=== PATIENT | male | born 1960 | race Caucasian/White ===

== ENCOUNTER 2019-11-14 12:04 | Emergency (ER) | payer OTHER ==
[2019-11-14] MEDS ORDERED: Albuterol/Ipratropium 3.0-0.5 MG/3 ML Neb Soln ONE (12:07)
[2019-11-14] MEDS ORDERED: Furosemide 40 MG/4 ML VIAL IVPUSH ONE (12:12)
[2019-11-14] MEDS ORDERED: Sodium Chloride 0.9% 10 ML Syringe FLUSH PRN (12:12)
[2019-11-14] MEDS ORDERED: Sodium Chloride 0.9% 2.5 ML Syringe FLUSH PRN (12:12)
[2019-11-14] MEDS ORDERED: Aspirin 81 MG Tab.Chew PO ONE (12:16)
[2019-11-14] MEDS ORDERED: Ondansetron 4 MG/2 ML SDV IVPUSH ONE (12:16)
[2019-11-14] MEDS ORDERED: Morphine 2 MG/ML Syringe IVPUSH ONE (12:16)
[2019-11-14] MEDS ORDERED: Nitroglycerin 2% Oint 1 GM UD Packet TOP ONE (12:16)
[2019-11-14 12:58] LABS: CARBON DIOXIDE,CO2 29.9 mmol/L (21.0-32.0); POTASSIUM,K 4.2 mmol/L (3.5-5.1)
--- NOTE | 2019-11-14 13:39 | CR ---
Chest: AP view of the chest was obtained. Comparison: No prior chest x-ray. Heart is enlarged but also is accentuated from AP technique. Tortuous thoracic aorta is seen. Lungs are clear no acute parenchymal change. Bony structures are grossly intact. Impression: 1. Heart is felt to be slightly enlarged. 2. Nothing acute is otherwise seen. Diagnostic code #2 This report was dictated in [place] Standard Time
--- NOTE | 2019-11-14 13:55 | EDM.PDOC ---
ED HPI GENERAL MEDICAL PROBLEM - General Chief Complaint: Respiratory Problem Stated Complaint: SOB Time Seen by Provider: 11/14/19 12:07 - History of Present Illness INITIAL COMMENTS - FREE TEXT/NARRATIVE: HISTORY AND PHYSICAL: History of present illness: Patient is a 59-year-old white male with history of coronary artery disease including stent placement approximately 1 year prior who presents with concern of progressive shortness of breath this has been exertional he also acknowledges medical noncompliance with his diuretic he states he has had some chest discomfort that he describes as a tightness also has had some in his neck he states this is been present approximately x1 week he is somewhat vague with regard to the intermittent nature of it on arrival here he did complain of the slightly this was relieved status post Lasix morphine and Nitropaste he did get full dose aspirin and remains without discomfort at this time he denies any tightness in his chest or neck and his shortness of breath is improved dramatically. Review of systems: As per history of present illness and below otherwise all systems reviewed and negative. Past medical history: As per history of present illness and as reviewed below otherwise noncontributory. Surgical history: As per history of present illness and as reviewed below otherwise noncontributory. Social history: No reported history of drug or alcohol abuse. Family history: As per history of present illness and as reviewed below otherwise noncontributory. Physical exam: HEENT: Atraumatic, normocephalic, pupils reactive, negative for conjunctival pallor or scleral icterus, mucous membranes moist, throat clear, neck supple, nontender, trachea midline. Lungs: Slightly diminished basilar crackles noted, breath sounds equal bilaterally, chest nontender. Heart: S1S2, regular, negative for clicks, rubs, or JVD. Abdomen: Soft, nondistended, nontender. Negative for masses or hepatosplenomegaly. Negative for costovertebral tenderness. Pelvis: Stable nontender. Genitourinary: Deferred. Rectal: Deferred. Extremities: Atraumatic, negative for cords or calf pain. Neurovascular unremarkable. Neuro: Awake, alert, oriented. Cranial nerves II through XII unremarkable. Cerebellum unremarkable. Motor and sensory unremarkable throughout. Exam nonfocal. Diagnostics: CBC CMP troponin PT/INR BNP chest x-ray EKG Therapeutics: IV O2 monitor aspirin 324 mg morphine sulfate 2 mg IV Zofran 4 mg IV Nitropaste 1 inch to chest wall Impression: #1 acute coronary syndrome Definitive disposition and diagnosis as appropriate pending reevaluation and review of above. Chest Heaviness Pain Score (Numeric/FACES): 7 - Related Data Allergies Allergy/AdvReac Type Severity Reaction Status Date / Time No Known Allergies Allergy Verified 11/14/19 12:16 Home Meds: Home Meds Clopidogrel [Plavix] 75 mg PO DAILY 11/14/19 [History] Furosemide [Lasix] 40 mg PO 11/14/19 [History] Past Medical History Cardiovascular History: Reports: Hypertension, Stents Social & Family History - Family History Family Medical History: Unobtainable - Tobacco Use Smoking Status *Q: Never Smoker - Recreational Drug Use Recreational Drug Use: No ED ROS GENERAL - Review of Systems Review Of Systems: Comprehensive ROS is negative, except as noted in HPI. ED EXAM, GENERAL - Physical Exam Exam: See Below (See dictation) Course - Vital Signs Text/Narrative:: Dr. Meadows cardiology did see patient in emergency department EKG was reviewed patient will be transferred to there are no beds available at [facility] where patient has had his cardiac cath and stent placement patient understands and agrees Last Recorded V/S: Last Vital Signs Temp 36.8 C 11/14/19 12:16 Pulse 118 H 11/14/19 13:39 Resp 20 11/14/19 13:39 BP 122/89 11/14/19 13:39 Pulse Ox 97 11/14/19 13:39 - Orders/Labs/Meds Orders: Active Orders 24 hr Category Date Time Status Cardiac Monitoring [RC] . DIRECTED Care 11/14/19 12:11 Active EKG 12 Lead [EKG Documentation Completion] [RC] STAT Care 11/14/19 13:08 Active EKG Documentation Completion [RC] STAT Care 11/14/19 12:11 Active Oxygen Therapy, ED [RC] ASDIRECTED Care 11/14/19 12:11 Active Pulse Oximetry [RC] ASDIRECTED Care 11/14/19 12:11 Active Sodium Chloride 0.9% [Saline Flush] Med 11/14/19 12:12 Active 10 ml FLUSH ASDIRECTED PRN Sodium Chloride 0.9% [Saline Flush] Med 11/14/19 12:12 Active 2.5 ml FLUSH ASDIRECTED PRN Saline Lock Insert [OM.PC] Stat Oth 11/14/19 12:11 Ordered Medication Orders Sodium Chloride (Saline Flush) 10 ml FLUSH ASDIRECTED PRN PRN Reason: Keep Vein Open Last Admin: 11/14/19 12:25 Dose: 10 ml Sodium Chloride (Saline Flush) 2.5 ml FLUSH ASDIRECTED PRN PRN Reason: Keep Vein Open Last Admin: 11/14/19 12:24 Dose: 2.5 ml Labs: Laboratory Tests 11/14/19 11/14/19 11/14/19 Range/Units 12:15 12:15 12:15 WBC 11.23 H (4.0-11.0) K/uL RBC 6.00 H (4.50-5.90) M/uL Hgb 18.7 H (13.0-17.0) g/dL Hct 55.8 H (38.0-50.0) % MCV 93.0 (80.0-98.0) fL MCH 31.2 (27.0-32.0) pg MCHC 33.5 (31.0-37.0) g/dL RDW Std Deviation 56.6 (28.0-62.0) fl RDW Coeff of Edinson 17 H (11.0-15.0) % Plt Count 188 (150-400) K/uL MPV 11.30 (7.40-12.00) fL Neut % (Auto) 62.7 (48.0-80.0) % Lymph % (Auto) 24.4 (16.0-40.0) % [place] % (Auto) 11.6 (0.0-15.0) % Eos % (Auto) 0.9 (0.0-7.0) % Baso % (Auto) 0.4 (0.0-1.5) % Neut # (Auto) 7.0 H (1.4-5.7) K/uL Lymph # (Auto) 2.7 H (0.6-2.4) K/uL Putnam # (Auto) 1.3 H (0.0-0.8) K/uL Eos # (Auto) 0.1 (0.0-0.7) K/uL Baso # (Auto) 0.1 (0.0-0.1) K/uL Nucleated RBC % 0.0 /100WBC Nucleated RBCs # 0 K/uL INR 1.20 Sodium 143 (136-148) mmol/L Potassium 4.2 (3.5-5.1) mmol/L Chloride 104 (98-107) mmol/L Carbon Dioxide 29.9 (21.0-32.0) mmol/L BUN 32 H (7.0-18.0) mg/dL Creatinine 2.3 H (0.8-1.3) mg/dL Est Cr Clr Drug Dosing 31.98 mL/min Estimated GFR (MDRD) 29.5 ml/min Glucose 89 (74-106) mg/dL Calcium 9.2 (8.5-10.1) mg/dL Total Bilirubin 2.3 H (0.2-1.0) mg/dL AST 58 H (15-37) IU/L ALT 76 H (14-63) IU/L Alkaline Phosphatase 39 L (46-116) U/L Troponin I 0.447 H* (0.000-0.056) ng/mL B-Natriuretic Peptide (<100) PG/ML Total Protein 7.6 (6.4-8.2) g/dL Albumin 3.6 (3.4-5.0) g/dL Globulin 4.0 (2.6-4.0) g/dL Albumin/Globulin Ratio 0.9 (0.9-1.6) 11/14/19 Range/Units 12:15 WBC (4.0-11.0) K/uL RBC (4.50-5.90) M/uL Hgb (13.0-17.0) g/dL Hct (38.0-50.0) % MCV (80.0-98.0) fL MCH (27.0-32.0) pg MCHC (31.0-37.0) g/dL RDW Std Deviation (28.0-62.0) fl RDW Coeff of Edinson (11.0-15.0) % Plt Count (150-400) K/uL MPV (7.40-12.00) fL Neut % (Auto) (48.0-80.0) % Lymph % (Auto) (16.0-40.0) % [place] % (Auto) (0.0-15.0) % Eos % (Auto) (0.0-7.0) % Baso % (Auto) (0.0-1.5) % Neut # (Auto) (1.4-5.7) K/uL Lymph # (Auto) (0.6-2.4) K/uL [place] # (Auto) (0.0-0.8) K/uL Eos # (Auto) (0.0-0.7) K/uL Baso # (Auto) (0.0-0.1) K/uL Nucleated RBC % /100WBC Nucleated RBCs # K/uL INR Sodium (136-148) mmol/L Potassium (3.5-5.1) mmol/L Chloride (98-107) mmol/L Carbon Dioxide (21.0-32.0) mmol/L BUN (7.0-18.0) mg/dL Creatinine (0.8-1.3) mg/dL Est Cr Clr Drug Dosing mL/min Estimated GFR (MDRD) ml/min Glucose (74-106) mg/dL Calcium (8.5-10.1) mg/dL Total Bilirubin (0.2-1.0) mg/dL AST (15-37) IU/L ALT (14-63) IU/L Alkaline Phosphatase (46-116) U/L Troponin I (0.000-0.056) ng/mL B-Natriuretic Peptide 590 H (<100) PG/ML Total Protein (6.4-8.2) g/dL Albumin (3.4-5.0) g/dL Globulin (2.6-4.0) g/dL Albumin/Globulin Ratio (0.9-1.6) Meds: Medications Generic Name Dose Route Start Last Admin Trade Name Freq PRN Reason Stop Dose Admin Sodium Chloride 10 ml 11/14/19 12:12 11/14/19 12:25 Saline Flush FLUSH 10 ml ASDIRECTED PRN Administration Keep Vein Open Sodium Chloride 2.5 ml 11/14/19 12:12 11/14/19 12:24 Saline Flush FLUSH 2.5 ml ASDIRECTED PRN Administration Keep Vein Open Discontinued Medications Generic Name Dose Route Start Last Admin Trade Name Freq PRN Reason Stop Dose Admin Albuterol/Ipratropium Confirm 11/14/19 12:07 11/14/19 12:25 Duoneb 3.0-0.5 Mg/3 Ml Administered 11/14/19 12:08 Not Given Dose 3 ml .ROUTE .STK-MED ONE Aspirin 324 mg 11/14/19 12:16 11/14/19 12:24 Aspirin PO 11/14/19 12:17 324 mg ONETIME ONE Administration Furosemide 40 mg 11/14/19 12:12 11/14/19 12:25 Lasix IVPUSH 11/14/19 12:13 40 mg NOW ONE Administration Morphine Sulfate 2 mg 11/14/19 12:16 11/14/19 12:24 Morphine IVPUSH 11/14/19 12:17 2 mg ONETIME ONE Administration Nitroglycerin 1 gm 11/14/19 12:16 11/14/19 12:24 Nitro-Bid 2% TOP 11/14/19 12:17 1 gm ONETIME ONE Administration Ondansetron HCl 4 mg 11/14/19 12:16 11/14/19 12:24 Zofran IVPUSH 11/14/19 12:17 4 mg ONETIME ONE Administration Departure - Departure Time of Disposition: 13:55 Disposition: DC/Tfer to Acute Hospital 02 Condition: Good Clinical Impression: Coronary syndrome, acute, Congestive heart failure - Discharge Information Referrals: PCP,None [Primary Care Provider] - Sepsis Event Note - Evaluation Sepsis Screening Result: No Definite Risk - Focused Exam Vital Signs: Vital Signs Temp Pulse Resp BP Pulse Ox 11/14/19 13:39 118 H 20 122/89 97 11/14/19 13:14 114 H 18 130/69 96 11/14/19 12:45 122 H 18 136/75 94 L 11/14/19 12:16 36.8 C 130 H 26 H 130/79 95 Date Exam was Performed: 11/14/19 Time Exam was Performed: 13:50 - My Orders Last 24 Hours: My Active Orders 11/14/19 12:11 Cardiac Monitoring [RC] . DIRECTED EKG Documentation Completion [RC] STAT Oxygen Therapy, ED [RC] ASDIRECTED Pulse Oximetry [RC] ASDIRECTED Saline Lock Insert [OM.PC] Stat 11/14/19 12:12 Sodium Chloride 0.9% [Saline Flush] 10 ml FLUSH ASDIRECTED PRN Sodium Chloride 0.9% [Saline Flush] 2.5 ml FLUSH ASDIRECTED PRN 11/14/19 13:08 EKG 12 Lead [EKG Documentation Completion] [RC] STAT - Assessment/Plan Last 24 Hours: My Active Orders 11/14/19 12:11 Cardiac Monitoring [RC] . DIRECTED EKG Documentation Completion [RC] STAT Oxygen Therapy, ED [RC] ASDIRECTED Pulse Oximetry [RC] ASDIRECTED Saline Lock Insert [OM.PC] Stat 11/14/19 12:12 Sodium Chloride 0.9% [Saline Flush] 10 ml FLUSH ASDIRECTED PRN Sodium Chloride 0.9% [Saline Flush] 2.5 ml FLUSH ASDIRECTED PRN 11/14/19 13:08 EKG 12 Lead [EKG Documentation Completion] [RC] STAT
== END 2019-11-14 14:35 ==
LOC: MW.ED 12:04
DX: I24.9 Acute ischemic heart disease, unspecified (principal); I11.0 Hypertensive heart disease with heart failure; I50.9 Heart failure, unspecified; Z95.5 Presence of coronary angioplasty implant and graft
CPT/HCPCS: 71045; 80053; 83880; 84484; 85025; 85610; 87804; 93005; 96374; 96375; 99285; A9270; J1940; J2270; J2405; J7620-GY

== ENCOUNTER 2022-08-30 15:40 | Inpatient (IN) | payer MEDICARE, OTHER ==
[2022-08-30] MEDS ORDERED: Sodium Chloride 0.9% 10 ML Syringe FLUSH PRN (16:16)
[2022-08-30] MEDS ORDERED: Sodium Chloride 0.9% 2.5 ML Syringe FLUSH PRN (16:16)
[2022-08-30 16:55] LABS: CARBON DIOXIDE,CO2 19.6 mmol/L (21.0-32.0); POTASSIUM,K 4.6 mmol/L (3.5-5.1)
[2022-08-30] MEDS ORDERED: Iopamidol 755 MG/ML 500 ML Multipack Bottle IVPUSH STA (17:50)
[2022-08-30] MEDS ORDERED: Furosemide 40 MG/4 ML VIAL ONE (20:46)
[2022-08-30] MEDS ORDERED: Furosemide 40 MG/4 ML VIAL IVPUSH ONE (20:49)
[2022-08-30] MEDS ORDERED: Acetaminophen 325 MG Tab PO PRN (22:57)
[2022-08-31 07:02] LABS: CARBON DIOXIDE,CO2 25.7 mmol/L (21.0-32.0); POTASSIUM,K 4.4 mmol/L (3.5-5.1)
[2022-08-31] MEDS ORDERED: Sodium Chloride 0.9% 10 ML Syringe FLUSH PRN (08:03)
[2022-08-31] MEDS ORDERED: Docusate Sodium 100 MG Cap PO PRN (08:03)
[2022-08-31] MEDS ORDERED: Albuterol/Ipratropium 3.0-0.5 MG/3 ML Neb Soln NEB PRN (08:03)
[2022-08-31] MEDS ORDERED: Ondansetron 4 MG/2 ML SDV IVPUSH PRN (08:03)
[2022-08-31] MEDS ORDERED: Sodium Chloride 0.9% 2.5 ML Syringe FLUSH PRN (08:03)
[2022-08-31 08:49] LABS: HEMOGLOBIN A1C 7.6 %
[2022-08-31] MEDS: Furosemide 40 MG/4 ML VIAL IVPUSH SCH ×2 (09:34→14:08)
[2022-08-31] MEDS ORDERED: 50% Dextrose in Water 50 ML Syringe IVPUSH PRN (10:20)
[2022-08-31] MEDS ORDERED: Glucagon,Human Recombinant 1 MG Vial IM PRN (10:20)
[2022-08-31] MEDS: Aspirin 81 MG Tab.Chew PO SCH (10:36)
[2022-08-31] MEDS: Clopidogrel 75 MG Tab PO SCH (10:36)
[2022-08-31] MEDS: Empagliflozin 10 MG Tab PO SCH (11:05)
[2022-08-31] MEDS: Insulin Aspart 100 Units/ML 3 ML Pen SUBCUT SCH ×2 (11:51→16:50)
[2022-08-31] MEDS: Heparin Sodium 5,000 Units/ML Vial SUBCUT SCH ×2 (12:29→23:48)
[2022-08-31] MEDS: atorvaSTATin 40 MG Tab PO SCH (20:49)
[2022-09-01 07:09] LABS: CARBON DIOXIDE,CO2 26.3 mmol/L (21.0-32.0); POTASSIUM,K 3.9 mmol/L (3.5-5.1)
[2022-09-01] MEDS: Insulin Aspart 100 Units/ML 3 ML Pen SUBCUT SCH ×3 (08:33→17:00)
[2022-09-01] MEDS: Furosemide 40 MG/4 ML VIAL IVPUSH SCH ×2 (08:35→13:12)
[2022-09-01] MEDS: Empagliflozin 10 MG Tab PO SCH (08:35)
[2022-09-01] MEDS: Clopidogrel 75 MG Tab PO SCH (08:35)
[2022-09-01] MEDS: Aspirin 81 MG Tab.Chew PO SCH (08:35)
[2022-09-01] MEDS: Heparin Sodium 5,000 Units/ML Vial SUBCUT SCH ×2 (11:54→23:31)
[2022-09-01] MEDS: atorvaSTATin 40 MG Tab PO SCH (21:00)
[2022-09-02] MEDS: Insulin Aspart 100 Units/ML 3 ML Pen SUBCUT SCH ×3 (06:37→16:56)
[2022-09-02 07:00] LABS: CARBON DIOXIDE,CO2 27.2 mmol/L (21.0-32.0)
[2022-09-02] MEDS: Empagliflozin 10 MG Tab PO SCH (08:07)
[2022-09-02] MEDS: Clopidogrel 75 MG Tab PO SCH (08:07)
[2022-09-02] MEDS: Aspirin 81 MG Tab.Chew PO SCH (08:07)
[2022-09-02] MEDS: Carvedilol 3.125 MG Tab PO SCH ×2 (11:39→20:09)
[2022-09-02] MEDS: Lisinopril 5 MG Tab PO SCH (11:39)
[2022-09-02] MEDS: Furosemide 40 MG/4 ML VIAL IVPUSH SCH (11:50)
[2022-09-02] MEDS ORDERED: Furosemide 40 MG Tab PO SCH (12:00)
[2022-09-02] MEDS ORDERED: Furosemide 40 MG/4 ML VIAL IVPUSH ONE (12:15)
[2022-09-02] MEDS ORDERED: Warfarin Sliding Scale PO SCH (14:00)
[2022-09-02] MEDS ORDERED: Warfarin 5 MG Tab PO ONE (14:00)
[2022-09-02] MEDS: Furosemide 40 MG Tab PO SCH (16:48)
[2022-09-02] MEDS: atorvaSTATin 40 MG Tab PO SCH (20:09)
[2022-09-03 07:50] LABS: CARBON DIOXIDE,CO2 26.6 mmol/L (21.0-32.0); POTASSIUM,K 4.4 mmol/L (3.5-5.1)
[2022-09-03] MEDS: Insulin Aspart 100 Units/ML 3 ML Pen SUBCUT SCH ×2 (07:55→12:13)
[2022-09-03] MEDS: Furosemide 40 MG Tab PO SCH (08:05)
[2022-09-03] MEDS: Aspirin 81 MG Tab.Chew PO SCH (09:53)
[2022-09-03] MEDS: Empagliflozin 10 MG Tab PO SCH (09:54)
[2022-09-03] MEDS: Carvedilol 3.125 MG Tab PO SCH (09:55)
[2022-09-03] MEDS: Lisinopril 5 MG Tab PO SCH (09:56)
[2022-09-03] MEDS ORDERED: Warfarin 5 MG Tab PO ONE (14:00)
== END 2022-09-03 13:00 | disposition home or self-care (01) | DRG 291 ==
LOC: MW.ED 15:40 → MW.MS 20:45 → OBSVTOIN 08-31 13:03
PROVIDERS: ADMIT Internal Medicine; ATTEND Internal Medicine
DX: R06.00 Dyspnea, unspecified (principal); R09.02 Hypoxemia; I10 Essential (primary) hypertension; I13.0 Hypertensive heart and chronic kidney disease with heart failure and stage 1 through stage 4 chronic kidney disease, or unspecified chronic kidney disease; I50.9 Heart failure, unspecified; I50.21 Acute systolic (congestive) heart failure; I25.5 Ischemic cardiomyopathy; E66.9 Obesity, unspecified; F14.91 Cocaine use, unspecified, in remission; N18.31 Chronic kidney disease, stage 3a; Z66 Do not resuscitate; Z20.822 Contact with and (suspected) exposure to COVID-19; I25.10 Atherosclerotic heart disease of native coronary artery without angina pectoris; E11.22 Type 2 diabetes mellitus with diabetic chronic kidney disease; I48.91 Unspecified atrial fibrillation; Z68.32 Body mass index [BMI] 32.0-32.9, adult; I25.2 Old myocardial infarction; Z95.5 Presence of coronary angioplasty implant and graft
CPT/HCPCS: 36415 ×2; 71045; 71275; 80053 ×2; 80061; 80305; 81003; 82947; 83036; 83735; 83880; 84443; 84484 ×3; 85025 ×2; 85379; 85610; 93005; 93306; 96374; 99285; A9270 ×3; J1644; J1815; J1940 ×2; J3490; Q9967; U0002; 80048; 96376; G0378

== ENCOUNTER 2022-09-07 18:01 | Emergency (ER) | payer MEDICARE ==
[2022-09-07] MEDS ORDERED: Sodium Chloride 0.9% 2.5 ML Syringe FLUSH PRN (19:03)
[2022-09-07] MEDS ORDERED: Sodium Chloride 0.9% 10 ML Syringe FLUSH PRN (19:03)
== END 2022-09-07 21:45 | disposition home or self-care (01) ==
LOC: MW.ED 18:01
DX: R55 Syncope and collapse (principal); E11.22 Type 2 diabetes mellitus with diabetic chronic kidney disease; I13.0 Hypertensive heart and chronic kidney disease with heart failure and stage 1 through stage 4 chronic kidney disease, or unspecified chronic kidney disease; N18.9 Chronic kidney disease, unspecified; I50.9 Heart failure, unspecified; I25.10 Atherosclerotic heart disease of native coronary artery without angina pectoris; E66.9 Obesity, unspecified; Z68.31 Body mass index [BMI] 31.0-31.9, adult; Z95.5 Presence of coronary angioplasty implant and graft; Z79.01 Long term (current) use of anticoagulants; Z79.899 Other long term (current) drug therapy; Z79.82 Long term (current) use of aspirin; Z79.84 Long term (current) use of oral hypoglycemic drugs
CPT/HCPCS: 36415; 70450; 70450-26; 71045; 71045-26; 80053; 80305-QW; 80307; 81003; 83735; 84146; 84484; 85025; 93005; 99284

== ENCOUNTER 2022-10-19 02:22 | Emergency (ER) | payer MEDICARE ==
[2022-10-19] MEDS ORDERED: Acetaminophen 325 MG Tab PO ONE (02:59)
[2022-10-19 03:42] LABS: CORONAVIRUS COVID-19 NAA NEGATIVE (NEGATIVE); INFLUENZA A NAA POSITIVE (NEGATIVE); INFLUENZA B NAA NEGATIVE (NEGATIVE)
[2022-10-19] MEDS ORDERED: Oseltamivir 75 MG Cap PO ONE (03:47)
[2022-10-19] MEDS ORDERED: Ondansetron 4 MG Tab.DIS PO ONE (03:47)
== END 2022-10-19 04:13 | disposition home or self-care (01) ==
LOC: MW.ED 02:22
DX: J10.1 Influenza due to other identified influenza virus with other respiratory manifestations (principal); I11.0 Hypertensive heart disease with heart failure; I50.9 Heart failure, unspecified; I25.2 Old myocardial infarction; E11.9 Type 2 diabetes mellitus without complications; E66.9 Obesity, unspecified; Z68.31 Body mass index [BMI] 31.0-31.9, adult; Z79.82 Long term (current) use of aspirin; Z79.899 Other long term (current) drug therapy; Z79.01 Long term (current) use of anticoagulants; Z79.84 Long term (current) use of oral hypoglycemic drugs; Z20.822 Contact with and (suspected) exposure to COVID-19
CPT/HCPCS: 0240U; 71046; 99283; A9270

== ENCOUNTER 2024-09-29 13:27 | Inpatient (IN) | payer MEDICARE ==
[2024-09-29] MEDS ORDERED: Sodium Chloride 0.9% 10 ML Syringe FLUSH PRN (13:39)
[2024-09-29] MEDS ORDERED: Sodium Chloride 0.9% 2.5 ML Syringe FLUSH PRN (13:39)
[2024-09-29 13:59] LABS: BASOPHILS ABSOLUTE AUTO 0.05 K/uL (0.00-0.20); BASOPHILS PERCENT AUTO 0.4 % (0.0-1.0); EOSINOPHILS ABSOLUTE AUTO 0.39 K/uL (0.00-0.45); EOSINOPHILS PERCENT AUTO 2.8 % (0.0-6.0); HEMATOCRIT 43.8 % (42.0-52.0); HEMOGLOBIN 15.5 g/dL (14.0-18.0); IMMATURE GRAN ABSOLUTE AUTO 0.08 K/uL (0.00-0.05); IMMATURE GRAN PERCENT AUTO 0.6 % (0.0-0.4); LYMPHOCYTES ABSOLUTE AUTO 1.93 K/uL (1.00-4.80); LYMPHOCYTES PERCENT AUTO 13.7 % (24.0-44.0); MEAN CORPUSCULAR HGB CONC 35.4 g/dL (32.0-36.0); MEAN CORPUSCULAR VOLUME 93.4 fL (83.0-99.0); MEAN PLATELET VOLUME 9.7 fL (9.4-12.4); MONOCYTES ABSOLUTE AUTO 1.15 K/uL (0.00-0.80); MONOCYTES PERCENT AUTO 8.2 % (0.0-8.0); NEUTROPHILS PERCENT AUTO 74.3 % (41.0-71.0); PLATELET COUNT,PLT 180 K/uL (150-400); RED BLOOD CELL COUNT 4.69 M/uL (4.52-5.90)
[2024-09-29] MEDS: Albuterol 0.083% 2.5 MG/3 ML Neb Soln NEB ONE (14:24)
[2024-09-29 14:32] LABS: A/G RATIO 0.9 (0.9-1.6); ALBUMIN 3.6 g/dL (3.4-5.0); CALCIUM 8.6 mg/dL (8.5-10.1); CARBON DIOXIDE,CO2 26.9 mmol/L (21.0-32.0); CREATININE 1.3 mg/dL (0.8-1.3); EST CRCL DRUG DOSING (CG) 68.5 mL/min; POTASSIUM,K 4.3 mmol/L (3.5-5.1); PROTEIN TOTAL,TP 7.4 g/dL (6.4-8.2)
[2024-09-29] MEDS: cefTRIAXone 2 GM in Sodium Chloride 0.9% 50 ML IV ONE (15:53)
[2024-09-29] MEDS: Iopamidol 755 Mg/ML 100 ML Bottle IVPUSH ONE (16:57)
[2024-09-29] MEDS ORDERED: Melatonin 3 MG Tab PO PRN (17:37)
[2024-09-29] MEDS ORDERED: Glucagon,Human Recombinant 1 MG Vial IM PRN (17:50)
[2024-09-29] MEDS ORDERED: Benzonatate 100 MG Cap PO PRN (17:50)
[2024-09-29] MEDS ORDERED: guaiFENesin 600 MG Tab.ER PO PRN (17:50)
[2024-09-29] MEDS ORDERED: 50% Dextrose in Water 50 ML Syringe IVPUSH PRN (17:50)
[2024-09-29] MEDS ORDERED: Albuterol/Ipratropium 3.0-0.5 MG/3 ML Neb Soln NEB PRN (18:00)
[2024-09-29] MEDS: Heparin Sodium 5,000 Units/ML Vial SUBCUT SCH (18:43)
[2024-09-29] MEDS: Acetaminophen 325 MG Tab PO PRN (19:42)
[2024-09-29] MEDS: Albuterol/Ipratropium 3.0-0.5 MG/3 ML Neb Soln NEB PRN (19:43)
[2024-09-29] MEDS: Sodium Chloride 0.9% 500 ML IV SCH (21:26)
[2024-09-30] MEDS: Carvedilol 12.5 MG Tab PO SCH (02:06)
[2024-09-30 05:42] LABS: HEMATOCRIT 42.2 % (42.0-52.0); HEMOGLOBIN 14.6 g/dL (14.0-18.0); MEAN CORPUSCULAR HEMOGLOBIN 32.7 pg (28.0-32.0); MEAN CORPUSCULAR HGB CONC 34.6 g/dL (32.0-36.0); MEAN CORPUSCULAR VOLUME 94.4 fL (83.0-99.0); MEAN PLATELET VOLUME 10.2 fL (9.4-12.4); PLATELET COUNT,PLT 170 K/uL (150-400); RED BLOOD CELL COUNT 4.47 M/uL (4.52-5.90); WHITE BLOOD CELL COUNT,WBC 12.83 K/uL (3.9-11.3)
[2024-09-30 06:35] LABS: A/G RATIO 0.9 (0.9-1.6); ALBUMIN 3.4 g/dL (3.4-5.0); CALCIUM 8.5 mg/dL (8.5-10.1); CARBON DIOXIDE,CO2 28.6 mmol/L (21.0-32.0); CREATININE 1.4 mg/dL (0.8-1.3); EST CRCL DRUG DOSING (CG) 63.61 mL/min; POTASSIUM,K 4.4 mmol/L (3.5-5.1); PROTEIN TOTAL,TP 7.3 g/dL (6.4-8.2)
[2024-09-30] MEDS: Insulin Aspart 100 Units/ML 3 ML Pen SUBCUT SCH (07:40)
[2024-09-30] MEDS: Furosemide 40 MG Tab PO SCH (08:47)
[2024-09-30] MEDS: Aspirin 81 MG Tab.Chew PO SCH (08:47)
[2024-09-30] MEDS: Spironolactone 25 MG Tab PO SCH (08:48)
[2024-09-30] MEDS: Furosemide 40 MG/4 ML VIAL IVPUSH SCH (10:57)
[2024-09-30] MEDS: cefTRIAXone 1 GM in Sodium Chloride 0.9% 50 ML IV SCH (11:49)
[2024-09-30] MEDS: atorvaSTATin 40 MG Tab PO SCH (20:29)
[2024-10-01 05:50] LABS: BASOPHILS ABSOLUTE AUTO 0.04 K/uL (0.00-0.20); BASOPHILS PERCENT AUTO 0.5 % (0.0-1.0); EOSINOPHILS ABSOLUTE AUTO 0.54 K/uL (0.00-0.45); EOSINOPHILS PERCENT AUTO 6.9 % (0.0-6.0); HEMATOCRIT 45.5 % (42.0-52.0); HEMOGLOBIN 15.6 g/dL (14.0-18.0); IMMATURE GRAN ABSOLUTE AUTO 0.04 K/uL (0.00-0.05); IMMATURE GRAN PERCENT AUTO 0.5 % (0.0-0.4); LYMPHOCYTES ABSOLUTE AUTO 2.36 K/uL (1.00-4.80); MEAN CORPUSCULAR HEMOGLOBIN 32.1 pg (28.0-32.0); MEAN CORPUSCULAR HGB CONC 34.3 g/dL (32.0-36.0); MEAN CORPUSCULAR VOLUME 93.6 fL (83.0-99.0); MEAN PLATELET VOLUME 10.2 fL (9.4-12.4); MONOCYTES ABSOLUTE AUTO 1.31 K/uL (0.00-0.80); MONOCYTES PERCENT AUTO 16.6 % (0.0-8.0); NEUTROPHILS ABSOLUTE AUTO 3.58 K/uL (1.80-7.70); NEUTROPHILS PERCENT AUTO 45.5 % (41.0-71.0); PLATELET COUNT,PLT 168 K/uL (150-400); RED BLOOD CELL COUNT 4.86 M/uL (4.52-5.90); WHITE BLOOD CELL COUNT,WBC 7.87 K/uL (3.9-11.3)
[2024-10-01 06:18] LABS: A/G RATIO 0.8 (0.9-1.6); ALBUMIN 3.7 g/dL (3.4-5.0); BILIRUBIN TOTAL 0.7 mg/dL (0.2-1.0); CALCIUM 9.4 mg/dL (8.5-10.1); CARBON DIOXIDE,CO2 29.6 mmol/L (21.0-32.0); CREATININE 1.3 mg/dL (0.8-1.3); EST CRCL DRUG DOSING (CG) 68.5 mL/min; MAGNESIUM 2.2 mg/dL (1.8-2.4); POTASSIUM,K 4.8 mmol/L (3.5-5.1); PROTEIN TOTAL,TP 8.2 g/dL (6.4-8.2)
== END 2024-10-01 11:42 | disposition home or self-care (01) | DRG 202 ==
LOC: MW.ED 13:27 → MW.MS 17:26
PROVIDERS: ADMIT Family Medicine; ATTEND Family Medicine
DX: J18.9 Pneumonia, unspecified organism (principal); R00.0 Tachycardia, unspecified; D72.829 Elevated white blood cell count, unspecified; I13.0 Hypertensive heart and chronic kidney disease with heart failure and stage 1 through stage 4 chronic kidney disease, or unspecified chronic kidney disease; J40 Bronchitis, not specified as acute or chronic; N18.9 Chronic kidney disease, unspecified; I42.9 Cardiomyopathy, unspecified; R65.10 Systemic inflammatory response syndrome (SIRS) of non-infectious origin without acute organ dysfunction; I48.91 Unspecified atrial fibrillation; I50.9 Heart failure, unspecified; I11.0 Hypertensive heart disease with heart failure; E11.9 Type 2 diabetes mellitus without complications; Z75.8 Other problems related to medical facilities and other health care; Z68.33 Body mass index [BMI] 33.0-33.9, adult; F14.10 Cocaine abuse, uncomplicated; E66.9 Obesity, unspecified; F12.90 Cannabis use, unspecified, uncomplicated; F15.90 Other stimulant use, unspecified, uncomplicated; Z66 Do not resuscitate; Z79.82 Long term (current) use of aspirin; Z79.01 Long term (current) use of anticoagulants; Z79.84 Long term (current) use of oral hypoglycemic drugs; Z79.899 Other long term (current) drug therapy; Z79.02 Long term (current) use of antithrombotics/antiplatelets; Z68.32 Body mass index [BMI] 32.0-32.9, adult; I25.2 Old myocardial infarction; Z95.5 Presence of coronary angioplasty implant and graft; Z91.199 Patient's noncompliance with other medical treatment and regimen due to unspecified reason
CPT/HCPCS: 36415; 71046; 71275; 80053; 83605; 83880; 84484 ×2; 85025; 85379; 87040 ×2; 87428; 93005; 94640; 96365; 99285; J0696; J3490; Q9967; 82947; 83036; 83735; 85027; A9270-GY; J1644; J1815-GY; J1940; J7030; J7620-GY

== ENCOUNTER 2024-11-09 16:28 | Emergency (ER) | payer MEDICARE ==
[2024-11-09 17:43] LABS: BASOPHILS ABSOLUTE AUTO 0.09 K/uL (0.00-0.20); BASOPHILS PERCENT AUTO 0.8 % (0.0-1.0); EOSINOPHILS ABSOLUTE AUTO 0.28 K/uL (0.00-0.45); EOSINOPHILS PERCENT AUTO 2.5 % (0.0-6.0); HEMATOCRIT 45.9 % (42.0-52.0); HEMOGLOBIN 16.3 g/dL (14.0-18.0); IMMATURE GRAN ABSOLUTE AUTO 0.08 K/uL (0.00-0.05); IMMATURE GRAN PERCENT AUTO 0.7 % (0.0-0.4); LYMPHOCYTES ABSOLUTE AUTO 2.05 K/uL (1.00-4.80); LYMPHOCYTES PERCENT AUTO 18.2 % (24.0-44.0); MEAN CORPUSCULAR HEMOGLOBIN 32.5 pg (28.0-32.0); MEAN CORPUSCULAR HGB CONC 35.5 g/dL (32.0-36.0); MEAN CORPUSCULAR VOLUME 91.6 fL (83.0-99.0); MEAN PLATELET VOLUME 10.2 fL (9.4-12.4); MONOCYTES ABSOLUTE AUTO 0.74 K/uL (0.00-0.80); MONOCYTES PERCENT AUTO 6.6 % (0.0-8.0); NEUTROPHILS ABSOLUTE AUTO 8.03 K/uL (1.80-7.70); NEUTROPHILS PERCENT AUTO 71.2 % (41.0-71.0); PLATELET COUNT,PLT 188 K/uL (150-400); RED BLOOD CELL COUNT 5.01 M/uL (4.52-5.90); WHITE BLOOD CELL COUNT,WBC 11.27 K/uL (3.9-11.3)
[2024-11-09 18:19] LABS: ALBUMIN 3.8 g/dL (3.4-5.0); CALCIUM 9.1 mg/dL (8.5-10.1); CARBON DIOXIDE,CO2 23.5 mmol/L (21.0-32.0); CREATININE 1.3 mg/dL (0.8-1.3); EST CRCL DRUG DOSING (CG) 68.5 mL/min; MAGNESIUM 2.1 mg/dL (1.8-2.4); POTASSIUM,K 4.5 mmol/L (3.5-5.1); PROTEIN TOTAL,TP 7.5 g/dL (6.4-8.2)
== END 2024-11-10 00:45 ==
LOC: MW.ED 16:28
DX: I13.0 Hypertensive heart and chronic kidney disease with heart failure and stage 1 through stage 4 chronic kidney disease, or unspecified chronic kidney disease (principal); I50.9 Heart failure, unspecified; N18.9 Chronic kidney disease, unspecified; I25.2 Old myocardial infarction; E11.22 Type 2 diabetes mellitus with diabetic chronic kidney disease; E66.9 Obesity, unspecified; Z68.32 Body mass index [BMI] 32.0-32.9, adult; Z79.82 Long term (current) use of aspirin; Z79.84 Long term (current) use of oral hypoglycemic drugs; Z79.899 Other long term (current) drug therapy; Z75.8 Other problems related to medical facilities and other health care
CPT/HCPCS: 36415; 71046; 71046-26; 80053; 83735; 83880; 84484; 85025; 93005; 99285